=== PATIENT | female | born 1995 | race American Indian/Alaskan Native ===

== ENCOUNTER 2017-05-16 20:52 | Emergency (ER) | payer MEDICAID, OTHER ==
[2017-05-16 23:52] LABS: RBC URINE < 1 /hpf (0-3); URINE BACTERIA RARE (<OCC); URINE BILIRUBIN NEGATIVE (NEGATIVE); URINE BLOOD NEGATIVE (NEGATIVE); URINE COLOR Yellow (YELLOW); URINE GLUCOSE (UA) NORMAL (Normal); URINE KETONE TRACE mg/dL (NEGATIVE); URINE LEUKOCYTE ESTERASE NEG Leu/uL (Negative); URINE PROTEIN NEGATIVE (NEGATIVE); URINE UROBILINOGEN NORMAL mg/dL (0.2-1.0); WBC URINE < 1 /hpf (0-5)
[2017-05-17 00:05] LABS: BASO # 0.1 K/uL (0.0-0.2); BASO % 0.6 % (0.0-2.0); EOS # 0.1 K/uL (0.0-0.7); EOS % 1.6 % (0.0-4.0); HEMATOCRIT 43.3 % (34.0-47.0); LYMPH % 22.6 % (20.0-40.0); MEAN CELL VOLUME 85.3 fL (81.0-99.0); MEAN CORPUSCULAR HEMOGLOBIN 28.4 pg (27.0-31.0); MEAN CORPUSCULAR HGB CONC 33.3 g/dL (33.0-37.0); MEAN PLATELET VOLUME 8.8 fL (7.2-11.7); MONO # 0.7 K/uL (0.0-0.8); MONO % 7.4 % (0.0-10.0); NRBC % 0.1 % (0.0-2.0)
--- NOTE | 2017-05-17 00:21 | C.PDOC ---
History Of Present Illness 22 y/o F c no PMHx p/w positive test x 2 at home. Patient states she has had lower abdominal pain x 1 week and was already in an ER for it and had an US which showed ovarian cyst. She states that she took 2 tests at home and they were positive so she came to ED today. She denies vaginal bleeding , vomiting, fever, dyspnea. She has appointment with OBGYN in 3 days. Time Seen by Provider: 05/17/17 00:11 Chief Complaint (Nursing): Abdominal Pain Past Medical History Vital Signs: Last Vital Signs Temp 98.5 F 05/16/17 21:24 Pulse 86 05/16/17 21:24 Resp 16 05/16/17 21:24 BP 119/83 05/16/17 21:24 Pulse Ox 100 05/17/17 00:21 - [facility] Procedures INCIS VULVA/PERINEUM NEC (03/16/14) Family History: States: No Known Family Hx - Social History Hx Tobacco Use: No Hx Alcohol Use: No Hx Substance Use: No - Immunization History Hx Tetanus Toxoid Vaccination: Yes Hx Influenza Vaccination: No Hx Pneumococcal Vaccination: No Review Of Systems Except As Marked, All Systems Reviewed And Found Negative. Constitutional: Negative for: Fever Cardiovascular: Negative for: Chest Pain Physical Exam - Physical Exam Appears: No Acute Distress Skin: Normal Color Head: Normacephalic Oral Mucosa: Moist Neck: Normal ROM Cardiovascular: Rhythm Regular Respiratory: Normal Breath Sounds Gastrointestinal/Abdominal: Soft, No Tenderness, No Distention, No Guarding, No Rebound, No Hernia Back: No CVA Tenderness Extremity: No Tenderness, No Swelling Pulses: Left Radial: Normal, Right Radial: Normal Neurological/Psych: Normal Speech, Normal Cognition ED Course And Treatment - Laboratory Results Result Diagrams: 05/16/17 23:58 O2 Sat by Pulse Oximetry: 100 Medical Decision Making Medical Decision Making: Patient with positive test. Discussed diagnostic possibilities of normal , threatened miscarriage, ectopic, abdominal pain not related to (ovarian cyst, etc.) Patient offered US tonight but patient declined. She states she will follow up with OBGYN as scheduled. Instructed to return to the ED immediately for worsening pain, bleeding, vomiting, dyspnea, LOC, near syncope, palpitations. Disposition - Disposition Disposition: HOME/ ROUTINE Disposition Time: 00:20 Condition: STABLE Prescriptions: Acetaminophen [Tylenol 325mg tab] 2 tab PO Q4H #30 tab Instructions: Abdominal Pain in (ED) Forms: [employer] (E[place]ian) - Clinical Impression Clinical Impression:
[2017-05-17 00:25] VITALS: BP 120/72; PULSE 79; RESP 20; TEMP 97.1
[2017-05-17 00:26] VITALS: O2SAT 100
== END 2017-05-17 00:28 | disposition home or self-care (01) ==
LOC: C.ER 20:52
DX: O26.891 Other specified pregnancy related conditions, first trimester (principal); R10.30 Lower abdominal pain, unspecified; Z3A.00 Weeks of gestation of pregnancy not specified